=== PATIENT | male | born 1980 | race Caucasian/White ===

== ENCOUNTER 2024-06-17 11:10 | Emergency (ER) | payer BC ==
[~2024-06-17] VITALS: Ht 177.8 cm; Wt 79.4 kg
[2024-06-17] MEDS ORDERED: CHILDREN'S ASPI81 MG PO (11:51)
[2024-06-17] MEDS ORDERED: ATORVASTATIN CA20 MG PO (11:51)
[2024-06-17] MEDS ORDERED: TRAMADOL HCL 50 MG TABLET PO STA (12:30)
[2024-06-17 13:10] LABS: HEMATOCRIT 41.3 % (39.0-48.0); HEMOGLOBIN 14.5 g/dL (13-16.00); MEAN CELL VOLUME 85.5 fL (80.0-100.00); MEAN CORPUSCULAR HGB CONC 35.1 g/dl (32.0-36.0); PLATELET COUNT 231 K/uL (150-450); RED BLOOD COUNT 4.83 M/uL (4.00-6.00); RED CELL DISTRIBUTION WIDTH 13.1 % (11.5-14.5)
[2024-06-17 13:55] LABS: CALCIUM 9.7 mg/dL (8.5-10.1); CREATININE SERUM 0.97 mg/dL (0.70-1.30); GFR 85.29; POTASSIUM 4.1 mEq/L (3.5-5.1)
== END 2024-06-17 14:58 | disposition home or self-care (01) ==
LOC: ER 11:12
PROVIDERS: General Practice
DX: B02.9 Zoster without complications (principal); R51.9 Headache, unspecified